=== PATIENT | female | born 1945 | race Caucasian/White ===

== ENCOUNTER → 2023-07-26 13:11 | Outpatient (REF) | payer MEDICARE, BC, SELFPAY | LOC: RAD 13:11 | PROVIDERS: ATTENDING PHYSICIAN Internal Medicine Nephrology; FAMILY PHYSICIAN Family Medicine | DX: N39.0 Urinary tract infection, site not specified (principal); M10.9 Gout, unspecified; R76.0 Raised antibody titer; I10 Essential (primary) hypertension | CPT/HCPCS: 76775 ==

== ENCOUNTER → 2023-08-23 10:10 | Outpatient (REF) | payer MEDICARE, BC, SELFPAY | LOC: RAD 10:10 | PROVIDERS: ATTENDING PHYSICIAN Internal Medicine Nephrology; FAMILY PHYSICIAN Family Medicine | DX: N18.30 Chronic kidney disease, stage 3 unspecified (principal); I10 Essential (primary) hypertension; N27.0 Small kidney, unilateral | CPT/HCPCS: 78707; A9539 ==

== ENCOUNTER → 2024-11-14 13:57 | Outpatient (REF) | payer MEDICARE, BC, SELFPAY | LOC: WDC 13:57 | PROVIDERS: ATTENDING PHYSICIAN Family Medicine | DX: Z12.31 Encounter for screening mammogram for malignant neoplasm of breast (principal) | CPT/HCPCS: 77063; 77067 ==

== ENCOUNTER 2024-11-29 06:14 | Day surgery (SDC) | payer MEDICARE, BC, SELFPAY ==
[2024-11-29 08:31] VITALS: BMI 41.9
[2024-11-29 08:32] VITALS: BMI 41.9
[2024-11-29 08:34] VITALS: BP 124/68
[2024-11-29 10:11] VITALS: BP 106/68
[2024-11-29 10:20] VITALS: BP 132/75
[2024-11-29 10:35] VITALS: BP 136/73
== END 2024-11-29 11:10 | disposition home or self-care (01) ==
LOC: SDS 06:14
PROVIDERS: ATTENDING PHYSICIAN Internal Medicine Gastroenterology
DX: D12.0 Benign neoplasm of cecum (principal); D12.2 Benign neoplasm of ascending colon; D12.3 Benign neoplasm of transverse colon; K63.5 Polyp of colon; K57.30 Diverticulosis of large intestine without perforation or abscess without bleeding; K64.8 Other hemorrhoids; R19.5 Other fecal abnormalities; K31.89 Other diseases of stomach and duodenum; Z79.01 Long term (current) use of anticoagulants
CPT/HCPCS: 45385; 43235; 88305

== ENCOUNTER 2025-02-27 06:03 | Emergency (ER) | payer MEDICARE, BC, SELFPAY ==
[2025-02-27 06:07] VITALS: BP 166/74
--- NOTE | 2025-02-27 06:43 | ED.GENMED ---
History of Present Illness
<KRYSTLE Monae Last Filed: 02/27/25 08:41>
General
Chief Complaint: Cold/Flu/URI Symptoms
Source: patient
Exam Limitations: none
Time Seen by Provider: 02/27/25 06:28
History of Present Illness
History of Present Illness:
79-year-old female with history of A-fib on Xarelto presents with 2 to 3 days worth of worsening cough fatigue chills and chest tightness. She feels as though she is wheezing. No prior history of underlying lung disease. No prior history of heart
failure. There is been no vomiting. Her is sick with similar symptoms. She denies leg swelling. She was unable to sleep last night secondary to the cough. She denies hemoptysis.
Past History
<KRYSTLE Monae Last Filed: 02/27/25 08:41>
Past History
ED Past Medical History: Arrthythmia (Atrial fib), HTN, Hypercholesterolemia and Other (IBS, DVT, Colitis, Osteoarthritis)
ED Past Surgical History: Gynecological (partial Hysterectomy) and Orthopedic (R total knee)
Social History
Tobacco: Former smoker
Alcohol: Daily (martini)
Personal:
Living: with family
Phy Exam
<KRYSTLE Monae Last Filed: 02/27/25 08:41>
Physical Exam
Physical Exam:
General: Obese female with slight increased work of breathing
HEENT normal cephalic atraumatic
Heart: Regular rate and rhythm
Lungs: Coarse throughout but crackles noted at the left base
Abdomen is soft nontender extremities: No cyanosis
Skin is warm no rash
Course
<KRYSTLE Monae Last Filed: 02/27/25 08:41>
Orders/Labs/Results
Orders:
Orders
02/27/25 06:41
Electrocardiogram (*1) Urgent
Reason for Study: Chest Pain
EKG- Treatment ONCE
Ipratropium/Albuterol Sulfate [Duoneb] 3 ml INH R NOW ONE
02/27/25 06:42
CR Chest - 2 Views Urgent
Comment:
Reason For Exam: cough
02/27/25 07:26
COVID-19 Antigen Urgent
Source: Nasal Swab
Complete Blood Count/With Diff Urgent
Comprehensive Metabolic Panel Urgent
NT-proBNP Urgent
Troponin I Urgent
Influenza A+B Rapid Molecular Urgent
AURELIO Source: Nasal Swab
Specimen Description:
Abnormal Lab Results
02/27/25
07:26
WBC 13.5 H 10^3/uL
(4.8-10.8)
RBC 3.53 L 10^6/uL
(4.20-5.40)
Hgb 11.3 L g/dL
(12.0-16.0)
Hct 35.1 L %
(37.0-47.0)
MCV 99.4 H fL
(81.0-99.0)
MCH 32.0 H pg
(27.0-31.0)
MCHC 32.2 L g/dL
(33.0-37.0)
RDW 18.3 H %
(11.5-14.5)
MPV 11.4 H fL
(7.4-10.4)
Abs Immat Gran (auto) 0.1 H 10^3/uL
(0-0.05)
Absolute Neuts (auto) 12.1 H 10^3/uL
(1.4-6.5)
Absolute Lymphs (auto) 0.5 L 10^3/uL
(1.2-3.4)
Absolute Monos (auto) 0.8 H 10^3/uL
(0.1-0.6)
Neutrophils % 89.5 H %
(42.2-75.2)
Lymphocytes % 3.5 L %
(20.5-51.1)
Chloride 109 H mmol/L
(98-107)
BUN 35 H mg/dl
(7-17)
Creatinine 1.2 H mg/dL
(0.6-1.0)
Glucose 146 H mg/dl
(70-99)
SARS-CoV-2 Antigen Positive A
(Negative)
02/27/25 07:26
02/27/25 07:26
Vital Signs
Initial and Last Documented VS:
Initial Vital Signs
Temp Pulse BP Pulse Ox
37.1 C 74 166/74 96
02/27/25 06:07 02/27/25 06:07 02/27/25 06:07 02/27/25 06:07
Last Documented Vital Signs
Temp Pulse BP Pulse Ox
37.1 C 74 166/74 96
02/27/25 06:07 02/27/25 06:07 02/27/25 06:07 02/27/25 06:45
<Noah Arteaga, DO - Last Filed: 02/27/25 08:39>
Orders/Labs/Results
Orders:
Orders
02/27/25 06:41
Electrocardiogram (*1) Urgent
Reason for Study: Chest Pain
EKG- Treatment ONCE
Ipratropium/Albuterol Sulfate [Duoneb] 3 ml INH R NOW ONE
02/27/25 06:42
CR Chest - 2 Views Urgent
Comment:
Reason For Exam: cough
02/27/25 07:26
COVID-19 Antigen Urgent
Source: Nasal Swab
Complete Blood Count/With Diff Urgent
Comprehensive Metabolic Panel Urgent
NT-proBNP Urgent
Troponin I Urgent
Influenza A+B Rapid Molecular Urgent
AURELIO Source: Nasal Swab
Specimen Description:
Abnormal Lab Results
02/27/25
07:26
WBC 13.5 H 10^3/uL
(4.8-10.8)
RBC 3.53 L 10^6/uL
(4.20-5.40)
Hgb 11.3 L g/dL
(12.0-16.0)
Hct 35.1 L %
(37.0-47.0)
MCV 99.4 H fL
(81.0-99.0)
MCH 32.0 H pg
(27.0-31.0)
MCHC 32.2 L g/dL
(33.0-37.0)
RDW 18.3 H %
(11.5-14.5)
MPV 11.4 H fL
(7.4-10.4)
Abs Immat Gran (auto) 0.1 H 10^3/uL
(0-0.05)
Absolute Neuts (auto) 12.1 H 10^3/uL
(1.4-6.5)
Absolute Lymphs (auto) 0.5 L 10^3/uL
(1.2-3.4)
Absolute Monos (auto) 0.8 H 10^3/uL
(0.1-0.6)
Neutrophils % 89.5 H %
(42.2-75.2)
Lymphocytes % 3.5 L %
(20.5-51.1)
Chloride 109 H mmol/L
(98-107)
BUN 35 H mg/dl
(7-17)
Creatinine 1.2 H mg/dL
(0.6-1.0)
Glucose 146 H mg/dl
(70-99)
SARS-CoV-2 Antigen Positive A
(Negative)
02/27/25 07:26
02/27/25 07:26
Vital Signs
Initial and Last Documented VS:
Initial Vital Signs
Temp Pulse BP Pulse Ox
37.1 C 74 166/74 96
02/27/25 06:07 02/27/25 06:07 02/27/25 06:07 02/27/25 06:07
Last Documented Vital Signs
Temp Pulse BP Pulse Ox
37.1 C 74 166/74 96
02/27/25 06:07 02/27/25 06:07 02/27/25 06:07 02/27/25 06:45
<Jevon Vasquez PA-C - Last Filed: 02/27/25 08:41>
MDM/Problems Addressed
Differential Diagnosis Includes:
Patient with cough chest tightness shortness of breath fatigue. Consider pneumonia versus COVID or flu or CHF. Unlikely to be PE secondary to anticoagulated state
Patient not hypoxic currently but with slight increased work of breathing. Ordered nebulizer EKG troponin BNP labs chest x-ray and test for COVID and flu.
She has a history of anemia which is currently being worked up by dosimetrist. She was actually due for a bone marrow biopsy tomorrow which she plans on canceling secondary to her current state
<Jevon Vasquez PA-C - Last Filed: 02/27/25 08:41>
*Pulse Oximetry
SaO2: 96
Oxygen Mode of Delivery: Room air
Patient hypoxic: no
*Critical Care Note
Total Time (30-74mins, 75-104mins- exclusive of procedures): Not Applicable
<Jevon Vasquez PA-C - Last Filed: 02/27/25 08:41>
Update Note
Update Note:
EKG demonstrates rate controlled atrial fibrillation with a rate of 95 no ischemic changes
Patient tested positive for COVID. Chest x-ray shows cardiomegaly and potential atelectasis versus pneumonia at the left base. White blood cell count is elevated. BNP is also elevated at 2420.
Discussed with emergency room attending who saw the patient as well had reassessed the patient. Still not hypoxic no respiratory distress at rest. She notes some improvement with nebulizer. Shared decision making occurred will decide at send
patient home and treat as outpatient. Given x-ray findings and leukocytosis will cover with Augmentin and Zithromax. Will have her take an inhaler at home as well as use an additional 20 mg on top of her 40 daily. Return precautions were given
ED Attending Note
<Jevon Vasquez PA-C - Last Filed: 02/27/25 08:41>
-
Portions of this chart may have been created with voice recognition software.� Occasional wrong word or��sound alike� substitutions may have occurred due to the inherent limitations of voice recognition software.
<Noah Arteaga DO - Last Filed: 02/27/25 08:39>
ED Attending Note
Patient seen and examined by attending physician: Yes
I performed the substantive portion of visit, reviewed & personally made and approve the management plan that is documented in note by myself or SERENE.: Yes
ED Attending Note:
I evaluated patient bedside. Patient COVID-19 positive. Lymphocytopenia noted and patient is positive for COVID-19. Mild BNP elevation however the patient is already on Entresto and diuretic. Months considered admission to the hospital however
the patient has a sat of 95% and is in no significant distress. She continues to have a general unwell feeling here feels comfortable enough to go home. Given the possibility of pneumonia will give antibiotics.
Discharge Plan
Departure
Patient Disposition: Home (Routine Discharge)
Date of Disposition: 02/27/25
Time of Disposition: 08:38
Patient with high blood pressure during this ER visit?: No
Discharge Problem:
COVID-19
Instructions: Viral Syndrome (DC), *DCA Heart Failure Instructions
Prescriptions:
New
amoxicillin-pot clavulanate 875-125 mg tablet
1 tab PO BID Qty: 14 0RF
azithromycin [Zithromax Z-Tim] 250 mg tablet
250 mg PO DAILY Qty: 6 0RF
albuterol sulfate [Ventolin HFA] 90 mcg/actuation HFA aerosol inhaler
1 inh inhalation Q4H PRN (Reason: shortness of breath or wheezing) Qty: 6.7 0RF
No Action
mesalamine [Asacol HD] 800 MG tablet,delayed release (DR/EC)
2 tab PO DAILY
rosuvastatin 10 MG tablet
10 mg PO QPM
Xarelto 20 MG tablet
20 mg PO DAILY
furosemide [Lasix] 40 mg Tablet
40 mg PO DAILY
folic acid 1 mg Tablet
1 mg PO DAILY
allopurinol 300 mg Tablet
300 mg PO DAILY
Centrum 0.4-162-18 mg Tablet
1 tab PO DAILY
acetaminophen [Tylenol] 325 mg Capsule
650 mg PO Q4H PRN (Reason: Pain)
nebivolol 20 mg Tablet
20 mg PO DAILY
Entresto 24-26 mg Tablet
1 tab PO BID
Referrals:
America Carias DO [Family Provider, Family Practice]
Activity Restrictions/Additional Instructions:
Take antibiotics as directed. Use your inhaler as directed and as needed for shortness of breath. As discussed, take an additional 20 mg of Lasix daily over the next 3 days. Please recheck with your doctor and/or liquid compounder. Please return here
for increasing shortness of breath fever or other worrisome findings.
Interventions
Interventions:
*Risk Screen - Suicide Last Done: 02/27/25 06:07
*General Assessment Last Done: 02/27/25 07:16
*Neglect/Abuse Screening Last Done: 02/27/25 06:07
*ED- Fall Risk Assessment Last Done: 02/27/25 06:50
*ED COVID-19 Vaccine History Last Done: 02/27/25 06:50
*ED Influenza Vaccine History Last Done: 02/27/25 06:50
ED- Cardiac Assessment Last Done: 02/27/25 07:16
ED- Pulmonary Assessment Last Done: 02/27/25 07:16
Discharge Date and Time
Print Language: CITIZEN [place]
[2025-02-27] MEDS: DUONEB 3 ML INH (07:29)
[2025-02-27 07:48] LABS: Hematocrit 35.1 % (37.0-47.0); Hemoglobin 11.3 g/dL (12.0-16.0); Mean Corp Hgb Conc. 32.2 g/dL (33.0-37.0); Mean Corpuscular Volume 99.4 fL (81.0-99.0); Nucleated Red Blood Cells % 0 %; Platelet Count 207 10^3/uL (130-400); Red Cell Dist. Width 18.3 % (11.5-14.5)
[2025-02-27 07:54] LABS: ALT (SGPT) 19 U/L (0-35); AST (SGOT) 23 U/L (14-36); Albumin 4.2 g/dl (3.5-5.0); Alkaline Phosphatase 70 U/L (38-126); Blood Urea Nitrogen 35 mg/dl (7-17); Calcium 9.2 mg/dl (8.4-10.2); Carbon Dioxide 27 mmol/L (22-30); Chloride 109 mmol/L (98-107); Glucose 146 mg/dl (70-99); Potassium 4.9 mmol/L (3.5-5.1); Sodium 141 mmol/L (135-145); Total Protein 6.7 g/dl (6.3-8.2); eGFR 46.62
[2025-02-27 07:58] LABS: COVID-19 Antigen Positive (Negative)
[2025-02-27 08:05] LABS: Troponin I 0.017 ng/ml
== END 2025-02-27 08:55 | disposition home or self-care (01) ==
LOC: EMR 06:03
PROVIDERS: Physician Assistant; EMERGENCY PHYSICIAN Emergency Medicine; FAMILY PHYSICIAN Family Medicine
DX: U07.1 COVID-19 (principal); I48.91 Unspecified atrial fibrillation; I10 Essential (primary) hypertension; E78.00 Pure hypercholesterolemia, unspecified; K58.9 Irritable bowel syndrome, unspecified; M19.90 Unspecified osteoarthritis, unspecified site; Z79.01 Long term (current) use of anticoagulants; Z86.718 Personal history of other venous thrombosis and embolism; Z87.891 Personal history of nicotine dependence; Z90.711 Acquired absence of uterus with remaining cervical stump
CPT/HCPCS: 99283; 94640; 71046; 80053; 83880; 84484; 85025; 87502; 87811; 93005

== ENCOUNTER → 2025-03-11 14:39 | Outpatient (REF) | payer MEDICARE, BC, SELFPAY | LOC: RAD 14:39 | PROVIDERS: ATTENDING PHYSICIAN Family Medicine | DX: J18.9 Pneumonia, unspecified organism (principal) | CPT/HCPCS: 71046 ==

== ENCOUNTER → 2025-04-15 08:11 | Outpatient (REF) | payer MEDICARE, BC, SELFPAY ==
[2025-04-15 08:40] LABS: Hematocrit 35.2 % (37.0-47.0); Hemoglobin 11.0 g/dL (12.0-16.0); Mean Corp Hgb Conc. 31.3 g/dL (33.0-37.0); Mean Corpuscular Volume 103.2 fL (81.0-99.0); Nucleated Red Blood Cells % 0 %; Platelet Count 265 10^3/uL (130-400); Red Cell Dist. Width 17.2 % (11.5-14.5)
[2025-04-15] MEDS: ATIVAN 0.5 MG PO (08:45)
[2025-04-15 08:49] LABS: INR 1.75; PT 20.7 Sec (11.4-14.6)
[2025-04-15 08:52] VITALS: BP 153/92; BP_SYST 75
[2025-04-15 11:08] VITALS: BP 153/80; BP_SYST 70
[2025-04-15 11:20] VITALS: BP 141/75
[2025-04-15 11:30] VITALS: BP 141/75
== END ==
LOC: RADI 08:11
PROVIDERS: ATTENDING PHYSICIAN Internal Medicine Hematology & Oncology; FAMILY PHYSICIAN Family Medicine; REFERRING PHYSICIAN Physician Assistant
DX: D50.9 Iron deficiency anemia, unspecified (principal); D68.8 Other specified coagulation defects
CPT/HCPCS: 36415; 38222; 77012; 85025; 85610; 88305; 88311; 88312; 88313